=== PATIENT | female | born 1955 | race Caucasian/White ===

== ENCOUNTER 2021-11-11 16:19 | Emergency (ER) | payer MEDICARE, OTHER ==
[2021-11-11] MEDS: Sodium Chloride 0.9% 1,000 ML IV SCH (17:10)
[2021-11-11] MEDS: Sodium Chloride 0.9% 10 ML Syringe FLUSH PRN (17:10)
[2021-11-11 17:26] LABS: ESTIMATED GFR 70 mL/min (>60)
== END 2021-11-11 20:00 | disposition home or self-care (01) ==
LOC: JP.ED 16:19
DX: E86.0 Dehydration (principal); R74.01 Elevation of levels of liver transaminase levels; Z79.899 Other long term (current) drug therapy
CPT/HCPCS: 36415; 80053; 84484; 85025; 93005; 96360; 99283; J3490; J7030